=== PATIENT | male | born 1955 | race Caucasian/White ===

== ENCOUNTER 2017-07-05 03:06 | Emergency (ER) | payer SELFPAY ==
[~2017-07-05] VITALS: Ht 175.3 cm; Wt 86.2 kg
[2017-07-05 03:06] VITALS: BP_SYST 194
[2017-07-05] MEDS ORDERED: cloNIDine HCL 0.1 MG TABLET PO ONE (03:45)
[2017-07-05 05:38] VITALS: BP_SYST 158
== END 2017-07-05 05:38 | disposition home or self-care (01) ==
LOC: SED 03:06
DX: Z02.89 Encounter for other administrative examinations (principal); I10 Essential (primary) hypertension
CPT/HCPCS: 99283